=== PATIENT | male | born 1950 | race Caucasian/White ===

== ENCOUNTER 2018-06-22 10:52 | Emergency (ER) | payer MEDICARE ==
[2018-06-22] MEDS ORDERED: LISI-362 PO (11:03)
--- NOTE | 2018-06-22 11:06 | ER Report ---
History and Physical Time Seen By MD: 11:06 Hx. of Stated Complaint: PATIENT REPORTS HAVING LICE 3 DAYS AGO. USED RUBBING ALCOHOL AND NIX TO TREATMENT. NOW REPORTS BUGS UNDER THE SKIN AND IN THE EYES HPI/ROS CHIEF COMPLAINT: Bug infestation HISTORY OF PRESENT ILLNESS: 68-year-old male patient presents to emergency room with complaint of having a bug infestation. 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 He states that he had lice 3 days ago. He states that the time he cut his hair really short, he cleaned his hair with alcohol and mixed. He states that seemed to help. He also states that after that he started noticing that he had bugs coming out of his skin all over the place. He states that they're across his forehead, he states he is pulling them out of his eye, he states that he has pulled for 5 out of his eye in the last couple days. He states that when he applies alcohol or next to skin that the bugs will come out. He denies having any fevers or chills. He states these seem them all over in his truck. He states that he is unsure where he became infested. He states that he bought a sweat shirt, which was new to him, when he was in [place] and he believes he saw some bugs on it. He states that if he puts a towel down next himself within 10 minutes he'll see bugs crawling all over it. Vision states he decided to come in for evaluation as result of that. He states that he was a wakened this morning as he parked in a rest. He states that he was not parked in a parking spot. At that time EMS was contacted he is brought to the emergency room. REVIEW OF SYSTEMS: Respiratory: No cough, no dyspnea. Cardiovascular: No chest pain, no palpitations. Gastrointestinal: No vomiting, no abdominal pain. Musculoskeletal: No back pain. Home Meds Active Scripts Sulfamethoxazole/Trimet 800-160 Mg Tab (BACTRIM DS TABLET) 1 Each Tablet, 1 TAB PO Q12H, #14 TAB Prov:MARCELOJUAN JOSE GLASS FINISHER 06/22/18 Reported Medications Lisinopril (LISINOPRIL) 10 Mg Tablet, 12.5 MG PO QDAY, TAB 06/22/18 Past Medical/Surgical History Patient has a past medical history of hypertension. Patient has a surgical history of cataract surgery, appendectomy. Reviewed Nurses Notes: Yes Constitutional Vital Sign - Last 24 Hours 06/22/18 06/22/18 10:55 15:42 Temp 97.3 Pulse 87 85 Resp 16 16 B/P (MAP) 159/93 132/82 (99) Pulse Ox 96 92 O2 Delivery Room Air Room Air Physical Exam General Appearance: The patient is alert, has no immediate need for airway protection and no current signs of toxicity. Eyes: Pupils equal and round no injection. Extraocular movements intact. A fluorescein exam was done which showed no investigation. Respiratory: Chest is non tender, lungs are clear to auscultation. Cardiac: regular rate and rhythm Gastrointestinal: Abdomen is soft and non tender, no masses, bowel sounds normal. Musculoskeletal: Neck: Neck is supple and non tender. Extremities have full range of motion and are non tender. Skin: No rashes or lesions. DIFFERENTIAL DIAGNOSIS: After history and physical exam differential diagnosis was considered for delusions, hallucination, drug withdrawal, drug overdose. Medical Decision Making Data Points Result Diagram: 06/22/18 1143 06/22/18 1143 Laboratory Hematology Test 06/22/18 00:00 06/22/18 11:43 Urine Color Jasmine Urine Clarity Slightly-cloudy Urine pH 5.0 pH (4.8-9.5) Urine Specific [place] 1.021 Urine Protein Negative mg/dL (NEGATIVE) Urine Glucose (UA) Negative mg/dL (NEGATIVE) Urine Ketones Trace mg/dL (NEGATIVE) Urine Blood Small (NEGATIVE) Urine Nitrite Positive (NEGATIVE) Urine Bilirubin Negative (NEGATIVE) Urine Urobilinogen 4.0 mg/dL (0.2-1.9) Urine Leukocyte Esterase Moderate (NEGATIVE) Urine RBC 1 /HPF (0-2/HPF) Urine WBC 61 /HPF (0-5/HPF) Urine Squamous Epithelial Cells None /LPF (</=FEW) Urine Bacteria Many /HPF (NONE-FEW) Urine Mucus None /HPF (NONE-FEW) Urine Opiates Screen Negative Urine Barbiturates Screen Negative Ur Tricyclic Antidepressants Screen Negative Urine Phencyclidine Screen Negative Urine Amphetamines Screen Positive Urine Benzodiazepines Screen Negative Urine Cocaine Screen Negative Urine Cannabinoids Screen Negative Red Blood Count 5.59 M/uL (4.00-5.60) Mean Corpuscular Volume 87.4 fL (80.0-96.0) Mean Corpuscular Hemoglobin 29.7 pg (26.0-33.0) Mean Corpuscular Hemoglobin Concent 33.9 g/dL (32.0-36.0) Red Cell Distribution Width 15.3 % (11.5-14.5) Mean Platelet Volume 7.8 fL (7.2-11.1) Neutrophils (%) (Auto) 39.7 % (39.4-72.5) Lymphocytes (%) (Auto) 53.2 % (17.6-49.6) Monocytes (%) (Auto) 4.8 % (4.1-12.4) Eosinophils (%) (Auto) 1.8 % (0.4-6.7) Basophils (%) (Auto) 0.5 % (0.3-1.4) Nucleated RBC Relative Count (auto) 0.2 /100WBC Neutrophils # (Auto) 4.4 K/uL (2.0-7.4) Lymphocytes # (Auto) 5.8 K/uL (1.3-3.6) Monocytes # (Auto) 0.5 K/uL (0.3-1.0) Eosinophils # (Auto) 0.2 K/uL (0.0-0.5) Basophils # (Auto) 0.1 K/uL (0.0-0.1) Nucleated RBC Absolute Count (auto) 0.02 K/uL Peripheral Blood Smear Yes Y/N Sodium Level 140 mmol/L (137-145) Potassium Level 3.4 mmol/L (3.5-5.0) Chloride Level 101 mmol/L (98-107) Carbon Dioxide Level 28 mmol/L (22-30) Blood Urea Nitrogen 21 mg/dl (9-21) Creatinine 0.90 mg/dl (0.66-1.25) Glomerular Filtration Rate Calc > 60.0 Random Glucose 95 mg/dl (75-110) Calcium Level 9.3 mg/dl (8.4-10.2) Magnesium Level 1.7 mg/dl (1.7-2.2) Total Bilirubin 1.2 mg/dl (0.2-1.3) Aspartate Amino Transf (AST/SGOT) 107 U/L (0-35) Alanine Aminotransferase (ALT/SGPT) 214 U/L (0-56) Alkaline Phosphatase 65 U/L (0-126) Total Protein 7.3 g/dl (6.3-8.2) Albumin 4.1 g/dl (3.5-5.0) Thyroid Stimulating Hormone (TSH) 2.05 uIU/ml (0.46-4.68) Salicylates Level < 10 mg/L Salicylate Last Dose Date unk Acetaminophen Level < 10 ug/ml Serum Alcohol < 10 mg/dl Chemistry Test 06/22/18 00:00 06/22/18 11:43 Urine Color Jasmine Urine Clarity Slightly-cloudy Urine pH 5.0 pH (4.8-9.5) Urine Specific [place] 1.021 Urine Protein Negative mg/dL (NEGATIVE) Urine Glucose (UA) Negative mg/dL (NEGATIVE) Urine Ketones Trace mg/dL (NEGATIVE) Urine Blood Small (NEGATIVE) Urine Nitrite Positive (NEGATIVE) Urine Bilirubin Negative (NEGATIVE) Urine Urobilinogen 4.0 mg/dL (0.2-1.9) Urine Leukocyte Esterase Moderate (NEGATIVE) Urine RBC 1 /HPF (0-2/HPF) Urine WBC 61 /HPF (0-5/HPF) Urine Squamous Epithelial Cells None /LPF (</=FEW) Urine Bacteria Many /HPF (NONE-FEW) Urine Mucus None /HPF (NONE-FEW) Urine Opiates Screen Negative Urine Barbiturates Screen Negative Ur Tricyclic Antidepressants Screen Negative Urine Phencyclidine Screen Negative Urine Amphetamines Screen Positive Urine Benzodiazepines Screen Negative Urine Cocaine Screen Negative Urine Cannabinoids Screen Negative White Blood Count 11.0 k/uL (4.5-11.0) Red Blood Count 5.59 M/uL (4.00-5.60) Hemoglobin 16.6 g/dL (14.0-18.0) Hematocrit 48.9 % (42.0-52.0) Mean Corpuscular Volume 87.4 fL (80.0-96.0) Mean Corpuscular Hemoglobin 29.7 pg (26.0-33.0) Mean Corpuscular Hemoglobin Concent 33.9 g/dL (32.0-36.0) Red Cell Distribution Width 15.3 % (11.5-14.5) Platelet Count 147 K/uL (150-450) Mean Platelet Volume 7.8 fL (7.2-11.1) Neutrophils (%) (Auto) 39.7 % (39.4-72.5) Lymphocytes (%) (Auto) 53.2 % (17.6-49.6) Monocytes (%) (Auto) 4.8 % (4.1-12.4) Eosinophils (%) (Auto) 1.8 % (0.4-6.7) Basophils (%) (Auto) 0.5 % (0.3-1.4) Nucleated RBC Relative Count (auto) 0.2 /100WBC Neutrophils # (Auto) 4.4 K/uL (2.0-7.4) Lymphocytes # (Auto) 5.8 K/uL (1.3-3.6) Monocytes # (Auto) 0.5 K/uL (0.3-1.0) Eosinophils # (Auto) 0.2 K/uL (0.0-0.5) Basophils # (Auto) 0.1 K/uL (0.0-0.1) Nucleated RBC Absolute Count (auto) 0.02 K/uL Peripheral Blood Smear Yes Y/N Glomerular Filtration Rate Calc > 60.0 Calcium Level 9.3 mg/dl (8.4-10.2) Magnesium Level 1.7 mg/dl (1.7-2.2) Total Bilirubin 1.2 mg/dl (0.2-1.3) Aspartate Amino Transf (AST/SGOT) 107 U/L (0-35) Alanine Aminotransferase (ALT/SGPT) 214 U/L (0-56) Alkaline Phosphatase 65 U/L (0-126) Total Protein 7.3 g/dl (6.3-8.2) Albumin 4.1 g/dl (3.5-5.0) Thyroid Stimulating Hormone (TSH) 2.05 uIU/ml (0.46-4.68) Salicylates Level < 10 mg/L Salicylate Last Dose Date unk Acetaminophen Level < 10 ug/ml Serum Alcohol < 10 mg/dl Toxicology Test 06/22/18 00:00 06/22/18 11:43 Urine Opiates Screen Negative Urine Barbiturates Screen Negative Ur Tricyclic Antidepressants Screen Negative Urine Phencyclidine Screen Negative Urine Amphetamines Screen Positive Urine Benzodiazepines Screen Negative Urine Cocaine Screen Negative Urine Cannabinoids Screen Negative Salicylates Level < 10 mg/L Salicylate Last Dose Date unk Acetaminophen Level < 10 ug/ml Serum Alcohol < 10 mg/dl Urinalysis Test 06/22/18 00:00 Urine Color Jasmine Urine Clarity Slightly-cloudy Urine pH 5.0 pH (4.8-9.5) Urine Specific [place] 1.021 Urine Protein Negative mg/dL (NEGATIVE) Urine Glucose (UA) Negative mg/dL (NEGATIVE) Urine Ketones Trace mg/dL (NEGATIVE) Urine Blood Small (NEGATIVE) Urine Nitrite Positive (NEGATIVE) Urine Bilirubin Negative (NEGATIVE) Urine Urobilinogen 4.0 mg/dL (0.2-1.9) Urine Leukocyte Esterase Moderate (NEGATIVE) Urine RBC 1 /HPF (0-2/HPF) Urine WBC 61 /HPF (0-5/HPF) Urine Squamous Epithelial Cells None /LPF (</=FEW) Urine Bacteria Many /HPF (NONE-FEW) Urine Mucus None /HPF (NONE-FEW) EKG/Imaging Imaging MR BRAIN/BRAIN STEM W/O CON Comparisons: Head CT scan without contrast dated earlier same day Additional pertinent history: Abnormal head CT TECHNIQUE: Multiplanar, multisequence brain MRI was performed without gadolinium contrast. FINDINGS: Sagittal midline structures and craniocervic al junction: Negative. Midline shift: None. Ventricles: Negative. Brain parenchyma: Diffusion weighted imaging: Negative. Gradient sequence: Region of magnetic susceptibility involving the lateral aspects of the right basal ganglion compatible with a region of remote hemorrhage. T2 weighted FLAIR images: Scattered foci of abnormal increased T2 signal wi thin the periventricular and subcortical white matter with foci of decreased T2 signal compatible with small lacunar infarcts, remote in appearance involving the right basal ganglion. Extra-axial spaces: Mild cerebral atrophy. Dural venous sinuses and major arterial flow voids: Negative. Mastoid air cells and paranasal sinuses: Mild lobular mucosal thickening involving the right maxillary sinus. Surrounding soft tissues and orbits: Negative. Impression: 1. Age related changes as described above. 2. No evidence of acute intracranial pathology. 3. Remote appearing hemorrhagic lacunar infarct involving the right basal ganglion. Report Dictated By: Derek De Dios MD at 06/22/2018 2:40 PM Report E-Signed By: Derek De Dios MD at 06/22/2018 2:[address] scan without contrast HISTORY: Confusion COMPARISONS: None TECHNIQUE: Non-contrast head CT was performed with sagittal and coronal reformations. One of the following dose optimization techniques was utilized in the perfor leslie of this exam: automated exposure control; adjustment of the mA and/or kV according to patient size; or use of iterative reconstruction technique. Specific details can be referenced in the facility's radiology CT exam operational policy. FINDINGS: There is no intracranial hemorrhage, hydrocephalus or midline shift. The basal cisterns, acuna-white differentiation, and convexity sulci are maintained. Cataract postsurgical change noted. Densely chronic infarcts in the right thalamus and posterior limb of the right internal capsule. Mild patchy white matter hypoattenuation. Clear mastoid air cells. Small right maxillary sinus mucous retention cysts. Normal osseous structures. IMPRESSION: No acute intracranial abnormality. Lacunar infarcts in the right thalamus and posterior limb of the right internal capsule which may be chronic given conspicuity. Brain MR may be warranted for further evaluation if there is clinical concern that these may represent subacute lacunar infarcts. Mild chronic small vessel ischemic change. Otherwise unremarkable head CT. Report Dictated By: Bryce Nguyen MD at 06/22/2018 12:24 PM Report E-Signed By: Bryce Nguyen MD at 06/22/2018 12:30 PM ED Course/Re-evaluation ED Course Patient was admitted on exam room, history and physical were obtained. Differential diagnoses were considered. On examination lungs are clear, heart is regular, abdomen soft nontender. On examination patient had no obvious signs of any bugs on the skin. Lab work for a behavioral health admission was done. I did have some concerns that he was having some hallucinations. I did do a fluorescein exam looking for bugs in the eye, however that was negative. A CT scan of the head was done. That did show chronic lacunar infarcts, however radiologist stated that they could be subacute and did recommend an MRI. While waiting for the MRI to be red we did get a urinalysis and drug screen. Patient does have a urinary tract infection with leukocyte esterase, nitrites and 61 white blood cells per high-power field. Patient was also positive for methamphetamines. The MRI was done which showed a remote hemorrhagic infarct. I discussed the case with Dr. De La Torre, neurologist at [facility], who recommended that the patient follow-up with primary care as there is nothing to be concerned about at this time. I discussed the findings with the patient. He did pull up pictures on his phone, trying to show me pictures of these bugs. What I saw were shadowing around the eyes and in his wrinkles. Patient will be discharged home on Bactrim DS for the urinary tract infection. I would like him follow-up with his primary care provider when he returns home to [place]. Patient verbalized understanding and agreement with plan. Decision to Disposition Date: Jun 22, 2018 Decision to Disposition Time: 15:34 Depart Departure Latest Vital Signs Vital Signs Date Time Temp Pulse Resp B/P (MAP) Pulse Ox O2 Delivery O2 Flow Rate FiO2 06/22/18 15:42 85 16 132/82 (99) 92 Room Air 06/22/18 10:55 97.3 Impression: Primary Impression: Hallucination, visual Additional Impression: UTI (urinary tract infection) Condition: Improved Disposition: HOME OR SELF-CARE New Scripts Sulfamethoxazole/Trimet 800-160 Mg Tab (BACTRIM DS TABLET) 1 Each Tablet 1 TAB PO Q12H, #14 TAB Prov: JUAN JOSE ROBERTSON 06/22/18 Patient Instructions: Urinary Tract Infection in Men (ED) Additional Instructions: Increase fluid intake. Get plenty of rest. Take the medication as prescribed for the next week. Follow up with your primary care provider in the next week. Avoid Meth use. Follow up in an ER if condition worsens. Problem Qualifiers Additional Impression: UTI (urinary tract infection) Urinary tract infection type: acute cystitis Hematuria presence: without hematuria Qualified Codes: N30.00 - Acute cystitis without hematuria JUAN JOSE ROBERTSON Jun 22, 2018 11:06
[2018-06-22] MEDS ORDERED: PROPARACAINE 0.5% OP 15ML BTL OU ONE (11:25)
[2018-06-22] MEDS ORDERED: FLUORESCEIN SOD 1 MG 1 EA STRP OU ONE (11:25)
[2018-06-22 11:55] LABS: PLATELET COUNT, AUTOMATED 147 K/uL (150-450)
--- NOTE | 2018-06-22 12:34 | RADIOLOGY IMAGING REPORT ---
FACILITY: [facility] PATIENT NAME: Michelet De La Paz : 1950 MR: [id number] V: [id number] EXAM DATE: ORDERING PHYSICIAN: JUAN JOSE ROBERTSON TECHNOLOGIST: Location: [facility] Patient: Michelet De La Paz : 1950 Visit/Account:[id number] Date of Sevice: 06/22/[address] scan without contrast HISTORY: Confusion COMPARISONS: None TECHNIQUE: Non-contrast head CT was performed with sagittal and coronal reformations. One of the following dose optimization techniques was utilized in the performance of this exam: autom ated exposure control; adjustment of the mA and/or kV according to patient size; or use of iterative reconstruction technique. Specific details can be referenced in the facility's radiology CT exam ope rational policy. FINDINGS: There is no intracranial hemorrhage, hydrocephalus or midline shift. The basal cisterns, acuna-white differentiation, and convexity sulci are maintained. Cataract postsurgical change noted. Densely integration specialist maggi infarcts in the right thalamus and posterior limb of the right internal capsule. Mild patchy whit e matter hypoattenuation. Clear mastoid air cells. Small right maxillary sinus mucous retention cysts . Normal osseous structures. IMPRESSION: No acute intracranial abnormality. Lacunar infarcts in the right thalamus and posterior limb of the right internal capsule which may be chronic given conspicuity. Brain MR may be warranted for further evaluation if there is clinical conc belle that these may represent subacute lacunar infarcts. Mild chronic small vessel ischemic change. Otherwise unremarkable head CT. Report Dictated By: Bryce Nguyen MD at 06/22/2018 12:24 PM Report E-Signed By: Bryce Nguyen MD at 06/22/2018 12:30 PM [id number]
--- NOTE | 2018-06-22 14:49 | RADIOLOGY IMAGING REPORT ---
FACILITY: [facility] PATIENT NAME: Michelet De La Paz : 1950 MR: [id number] V: [id number] EXAM DATE: ORDERING PHYSICIAN: JUAN JOSE ROBERTSON TECHNOLOGIST: Location: [facility] Patient: Michelet De La Paz : 1950 Visit/Account:[id number] Date of Sevice: 06/22/2018 MR BRAIN/BRAIN STEM W/O CON Comparisons: Head CT scan without contrast dated earlier same day Additional pertinent history: Abnormal head CT TECHNIQUE: Multiplanar, multisequence brain MRI was performed without gadolinium contrast. FINDINGS: Sagittal midline structures and craniocervical junction: Negative. Midline shift: None. Ventricles: Negative. Brain parenchyma: Diffusion weighted imaging: Negative. Gradient sequence: Region of magnetic susceptibility involving the lateral aspects of the right bas al ganglion compatible with a region of remote hemorrhage. T2 weighted FLAIR images: Scattered foci of abnormal increased T2 signal within the periventricular and subcortical white matter with foci of decreased T2 signal compatible with small lacunar infarcts , remote in appearance involving the right basal ganglion. Extra-axial spaces: Mild cerebral atrophy. Dural venous sinuses and major arterial flow voids: Negative. Mastoid air cells and paranasal sinuses: Mild lobular mucosal thickening involving the right maxillar y sinus. Surrounding soft tissues and orbits: Negative. Impression: 1. Age related changes as described above. 2. No evidence of acute intracranial pathology. 3. Remote appearing hemorrhagic lacunar infarct involving the right basal ganglion. Report Dictated By: Derek De Dios MD at 06/22/2018 2:40 PM Report E-Signed By: Derek De Dios MD at 06/22/2018 2:44 PM [id number]
[2018-06-22] MEDS ORDERED: SULF-198 PO (15:32)
[2018-06-22 15:42] VITALS: BP 132/82
== END 2018-06-22 16:20 | disposition home or self-care (01) ==
LOC: ER 10:59
DX: R44.1 Visual hallucinations (principal); N39.0 Urinary tract infection, site not specified; F15.10 Other stimulant abuse, uncomplicated
CPT/HCPCS: 70450; 70551; 80305; 81001; 83735; 84443; 85025; 87077; 87088; 87186; 99284; A9270; G0480; 80320; 80329; 82040; 82247; 82310; 82374; 82435; 82565; 82947; 84075; 84132; 84155; 84295; 84450; 84460; 84520